=== PATIENT | male | born 1970 | race Two or more races ===

== ENCOUNTER 2022-01-21 00:53 | Emergency (ER) | payer OTHER ==
[2022-01-21 01:10] VITALS: BP 110/81; PULSE 75; TEMP 98.2; BMI 27.4
[2022-01-21] MEDS ORDERED: FLUORESCEIN NA 1 EA STRIP OD ONE (01:43)
[2022-01-21] MEDS ORDERED: TETRACAINE 0.5% HCL 0.6ML DROPPER.BOTTLE OD ONE (01:43)
[2022-01-21] MEDS ORDERED: TETRACAINE 0.5% OPHTH SOLN 2 ML BOTTLE ONE (02:07)
[2022-01-21] MEDS ORDERED: FLUORESCEIN NA 1 EA STRIP ONE (02:46)
[2022-01-21] MEDS ORDERED: KETOROLAC TROMETHAMINE 30 MG/1 ML VIAL IM ONE (06:07)
[2022-01-21] MEDS ORDERED: KETOROLAC TROMETHAMINE 30 MG/1 ML VIAL ONE (06:16)
== END 2022-01-21 07:03 | disposition home or self-care (01) ==
LOC: JER 00:53
DX: H16.133 Photokeratitis, bilateral (principal)
CPT/HCPCS: 99283-25

== ENCOUNTER 2022-06-14 04:16 | Day surgery (SDC) | payer OTHER ==
[2022-06-09 12:51] VITALS: BMI 31.1
[2022-06-14 10:37] VITALS: RESP 20
[2022-06-14] MEDS ORDERED: MIDAZOLAM HCL 2 MG/2 ML SINGLE DOSE VIAL ONE (12:48)
[2022-06-14] MEDS ORDERED: PROPOFOL 40 ML ONE (12:48)
[2022-06-14] MEDS ORDERED: FENTANYL CITRATE/PF 50 MCG/ML VIAL ONE (12:48)
[2022-06-14 14:31] VITALS: TEMP 98.2
[2022-06-14 15:28] VITALS: BP 128/94; PULSE 65
== END 2022-06-14 15:43 | disposition home or self-care (01) ==
LOC: JASU-SURG 04:16
PROVIDERS: ATTEND Urology
PROC: 0TF3XZZ Fragmentation in Right Kidney Pelvis, External Approach (ICD-10-PCS; principal; 2022-06-14 12:00)
DX: N20.0 Calculus of kidney (principal)

== ENCOUNTER 2022-08-09 04:11 | Day surgery (SDC) | payer OTHER ==
[2022-08-04 14:23] VITALS: BMI 27.7
[2022-08-09] MEDS ORDERED: PROPOFOL 20 ML ONE (12:21)
[2022-08-09] MEDS ORDERED: MIDAZOLAM HCL 2 MG/2 ML SINGLE DOSE VIAL ONE (12:21)
[2022-08-09 13:59] VITALS: BP 119/78; PULSE 70; RESP 16; TEMP 98
== END 2022-08-09 14:20 | disposition home or self-care (01) ==
LOC: JASU-SURG 04:11
PROVIDERS: ATTEND Urology
PROC: 0TF4XZZ Fragmentation in Left Kidney Pelvis, External Approach (ICD-10-PCS; principal; 2022-08-09 12:30)
DX: N20.0 Calculus of kidney (principal)